=== PATIENT | female | born 1965 | race Caucasian/White ===

== ENCOUNTER 2017-05-09 09:09 | Outpatient (CLI) | payer OTHER | END 2017-05-09 12:24 | disposition home or self-care (01) | LOC: MAMO-SONO 09:09 | DX: Z12.31 Encounter for screening mammogram for malignant neoplasm of breast (principal); N63.10 Unspecified lump in the right breast, unspecified quadrant; N63.20 Unspecified lump in the left breast, unspecified quadrant; E04.9 Nontoxic goiter, unspecified; N95.0 Postmenopausal bleeding ==